=== PATIENT | female | born 1970 | race Two or more races ===

== ENCOUNTER 2020-01-06 11:27 | Day surgery (SDC) | payer OTHER | END 2020-01-06 15:40 | disposition home or self-care (01) | LOC: AMB-ENDOS 11:27 | PROVIDERS: ATTEND Surgery | DX: K63.5 Polyp of colon (principal); Z12.11 Encounter for screening for malignant neoplasm of colon; Z20.828 Contact with and (suspected) exposure to other viral communicable diseases; K64.1 Second degree hemorrhoids ==

== ENCOUNTER 2020-05-19 10:14 | Outpatient (CLI) | payer OTHER | END 2020-05-19 10:25 | disposition home or self-care (01) | LOC: MAMO-SONO 10:14 | PROVIDERS: ATTEND Internal Medicine Geriatric Medicine | DX: Z12.31 Encounter for screening mammogram for malignant neoplasm of breast (principal); C50.811 Malignant neoplasm of overlapping sites of right female breast; C50.812 Malignant neoplasm of overlapping sites of left female breast; N63.0 Unspecified lump in unspecified breast; N64.4 Mastodynia; N60.12 Diffuse cystic mastopathy of left breast; N60.11 Diffuse cystic mastopathy of right breast ==